=== PATIENT | female | born 1950 | race American Indian/Alaskan Native ===

== ENCOUNTER 2022-07-21 15:28 | Emergency (ER) | payer MEDICARE ==
--- NOTE | 2022-07-21 18:50 | XRay Report ---
CHEST 2 VIEWS INDICATION: sob. COMPARISON: None FINDINGS: SUPPORT DEVICES: None. HEART: Within normal limits. LUNGS/PLEURA: No acute air space or interstitial disease. Minimal bibasilar subsegmental atelectasis . ADDITIONAL FINDINGS: None. IMPRESSION: 1. No acute findings. Signer Name: Rosales Liz MD Signed: 07/21/2022 6:43 PM Workstation Name: [email or web address]
[2022-07-21 19:46] LABS: Basophils % (Auto) 0.3 % (0.0-1.8); Eosinophils % (Auto) 0.5 % (0.0-4.3); Hematocrit 43.3 % (30.3-42.9); Hemoglobin 13.9 gm/dl (10.1-14.3); Lymphocytes # (Auto) 0.8 K/mm3 (1.2-5.4); Lymphocytes % (Auto) 10.4 % (13.4-35.0); Mean Corpuscular HGB Conc 32 % (30-34); Mean Corpuscular Volume 88 fl (79-97); Monocytes # (Auto) 1.1 K/mm3 (0.0-0.8); Monocytes % (Auto) 15.3 % (0.0-7.3); Platelet Count 232 K/mm3 (140-440); Red Blood Count 4.93 M/mm3 (3.65-5.03); Red Cell Distribution Width 14.1 % (13.2-15.2)
[2022-07-21 20:08] LABS: Alanine Aminotransferase 14 units/L (7-56); Albumin 4.8 g/dL (3.9-5); Blood Urea Nitrogen 11 mg/dL (7-17); Calcium 10.3 mg/dL (8.4-10.2); Hemolysis Index 7
[2022-07-21 20:12] LABS: BUN/Creatinine Ratio 16
[2022-07-22 01:53] VITALS: BP 136/76
--- NOTE | 2022-07-22 02:23 | Emergency Department Report ---
- General Chief Complaint: Upper Respiratory Infection Stated Complaint: HAVING TROUBLE BREATHING/ DIZZINESS / ARM PAIN Time Seen by Provider: 07/22/22 02:18 Source: patient Mode of arrival: Ambulatory Limitations: No Limitations - History of Present Illness Initial Comments: 72 yo F with h/o Breast CA who now present with running nose and congestion for the last 6-7 days and progressively getting worse. She noted tick yellowish colored nasal discharge. Also mentioned dry cough and fever or 102 degrees. She has tried allergy medication with minimal improvement. No other modifying or associated factors reported. MD Complaint: fever, cough, rhinorrhea, nasal congestion - Related Data Previous Rx's Medication Instructions Recorded Last Taken Type Amoxicillin/K Clav Tab [Augmentin 1 tab PO Q12HR 7 Days #14 tab NS 07/22/22 Unknown Rx 875 mg] Benzonatate [Tessalon Perles] 100 mg PO BID 7 Days #14 cap NS 07/22/22 Unknown Rx Allergies Allergy/AdvReac Type Severity Reaction Status Date / Time Sulfa (Sulfonamide Allergy Unknown Verified 07/21/22 15:39 Antibiotics) ED Review of Systems ROS: Stated complaint: HAVING TROUBLE BREATHING/ DIZZINESS / ARM PAIN Other details as noted in HPI Comment: All other systems reviewed and negative ENT: congestion, other (running nose ) Respiratory: cough ED Past Medical Hx - Past Medical History Hx Hypertension: Yes Hx of Cancer: Yes (breast) - Surgical History Hx Breast Surgery: Yes (lumpectomy bilateral) - Medications Home Medications: Home Medications Medication Instructions Recorded Confirmed Last Taken Type Amoxicillin/K Clav Tab [Augmentin 1 tab PO Q12HR 7 Days #14 tab NS 07/22/22 Unknown Rx 875 mg] Benzonatate [Tessalon Perles] 100 mg PO BID 7 Days #14 cap NS 07/22/22 Unknown Rx ED Physical Exam - General Limitations: No Limitations General appearance: alert, in no apparent distress - Head Head exam: Present: normal inspection - Eye Eye exam: Present: normal appearance Pupils: Present: normal accommodation - ENT ENT exam: Present: mucous membranes moist, other (nasal erythema and polyps ) - Neck Neck exam: Present: normal inspection, full ROM. Absent: tenderness - Respiratory Respiratory exam: Present: normal lung sounds bilaterally. Absent: respiratory distress, chest wall tenderness, accessory muscle use - Cardiovascular Cardiovascular Exam: Present: regular rate, normal rhythm, normal heart sounds - GI/Abdominal GI/Abdominal exam: Present: soft, normal bowel sounds. Absent: distended, tenderness - Extremities Exam Extremities exam: Present: normal inspection, tenderness. Absent: pedal edema - Back Exam Back exam: Present: normal inspection - Neurological Exam Neurological exam: Present: alert, oriented X3 - Psychiatric Psychiatric exam: Present: normal affect, normal mood - Skin Skin exam: Present: warm, normal color ED Course Vital Signs 07/21/22 07/22/22 15:33 01:52 Temperature 101 F H 99.7 F H Pulse Rate 96 H 84 Respiratory 22 18 Rate Blood Pressure 172/85 136/76 [Right] O2 Sat by Pulse 99 97 Oximetry ED Medical Decision Making - Lab Data Result diagrams: 07/21/22 19:24 07/21/22 19:24 - Medical Decision Making rhinorrhea and nasal congestion with discharge-- consistent with sinusitis-- CXR noted with on acute findings-- labs reviewed with normal wbc. Will go ahead and make a case for antibiotic for her sinusitis-- Critical care attestation.: If time is entered above; I have spent that time in minutes in the direct care of this critically ill patient, excluding procedure time. ED Disposition Clinical Impression: Sinusitis with nasal polyps Disposition: HOME / SELF CARE / HOMELESS Is pt being admited?: No Does the pt Need Aspirin: No Condition: Stable Instructions: Sinusitis, Adult, [id number], How to Perform a Sinus Rinse, [id number], Upper Respiratory Infection, Adult, [id number] Additional Instructions: It is very important that you take and complete your antibiotics as prescribed Call and schedule follow-up with your primary doctor in the next 3 to 5 days for progress Please do not hesitate to call or return to emergency room if your symptoms worsen It is okay to take Tylenol/ibuprofen every 6-8 hours as needed for pain/fever Increase your daily fluid to help your hydration Prescriptions: Amoxicillin/K Clav Tab [Augmentin 875 mg] 1 tab PO Q12HR 7 Days #14 tab NS Benzonatate [Tessalon Perles] 100 mg PO BID 7 Days #14 cap NS Referrals: [facility] [place] [Referring] - 3-5 Days Time of Disposition: 02:30
== END 2022-07-22 03:11 | disposition home or self-care (01) ==
LOC: ED 15:28
DX: J33.9 Nasal polyp, unspecified (principal); I10 Essential (primary) hypertension; Z85.3 Personal history of malignant neoplasm of breast
CPT/HCPCS: 36415; 71046; 80053; 85025; 99283